=== PATIENT | female | born 1975 | race Caucasian/White ===

== ENCOUNTER 2016-09-28 14:41 | Emergency (ER) | payer OTHER | END 2016-09-28 15:42 | disposition home or self-care (01) | LOC: ER 14:41 | DX: J06.9 Acute upper respiratory infection, unspecified (principal); R50.9 Fever, unspecified; R05 Cough; R52 Pain, unspecified; Z20.828 Contact with and (suspected) exposure to other viral communicable diseases; M54.9 Dorsalgia, unspecified; Z90.49 Acquired absence of other specified parts of digestive tract; F17.210 Nicotine dependence, cigarettes, uncomplicated | CPT/HCPCS: 87400; 99283 ==

== ENCOUNTER 2016-11-21 22:01 | Emergency (ER) | payer OTHER | END 2016-11-22 00:51 | disposition home or self-care (01) | LOC: ER 22:01 | DX: J06.9 Acute upper respiratory infection, unspecified (principal); B37.0 Candidal stomatitis; J44.9 Chronic obstructive pulmonary disease, unspecified; Z98.51 Tubal ligation status; F17.210 Nicotine dependence, cigarettes, uncomplicated | CPT/HCPCS: 96372; 99283-25 ==